=== PATIENT | female | born 1945 | race Caucasian/White ===

== ENCOUNTER 2017-09-02 09:24 | Outpatient (CLI) | payer MEDICARE, OTHER ==
[2015-12-19 09:16] VITALS: BP 189/96
== END 2017-09-02 09:25 ==
LOC: RAD 09:24
PROVIDERS: ATTEND Nurse Practitioner Family
DX: Z78.0 Asymptomatic menopausal state (principal); Z12.31 Encounter for screening mammogram for malignant neoplasm of breast
CPT/HCPCS: 77080

== ENCOUNTER 2017-12-27 13:51 | Outpatient (CLI) | payer MEDICARE, OTHER ==
[2015-12-19 09:16] VITALS: BP 189/96
[2017-12-27 14:07] LABS: BASOPHILS % 0.2 (0.0-1.5); EOSINOPHILS % 2.8 % (0.0-6.8); MEAN CORPUSCULAR HEMOGLOBIN 27.2 pg (28.0-34.0); MEAN CORPUSCULAR VOLUME 87.4 fl (80.0-100.0); MONOCYTES % 2.4 % (0.0-11.0); NEUTROPHILS # 5.2 # k/uL (1.4-7.7)
[2017-12-27 14:34] LABS: eGFR (African) > 60; eGFR (Non-African) > 60
--- NOTE | 2017-12-27 19:47 | Diagnostic Imaging Report ---
[facility] [address] [facility] [address] [id number] Report Submission Date: December 27, 2017 2:59:05 PM CDT Patient Study Name: MICHAEL DAWN Date: December 27, 2017 2:05:21 PM CDT Modality Type: DX Gender: F Description: SPINE : 43 Institution: [facility] Physician: Nicolasa Lee Examination: Plain film lumbar spine History: L-SPINE, LOW BACK PAIN FOR SEVERAL WEEKS, STARTED ON THE LEFT SIDE AND HAS MOVED TO THE RIGHT SIDE. PT STATES NO RECENT INJURY (Hx) Findings: 5 views of the lumbar spine demonstrates diffuse osteopenia. No anterior compression deformity. L4/L5 listhesis. L5/S1 disc space narrowing. Oblique views demonstrate facet degenerative changes. Atherosclerotic disease involving the abdominal aorta and iliac vessels. Impression: Osteopenia, listhesis, and degenerative changes. No compression deformity. Electronically signed on December 27, 2017 2:59:05 PM CDT by: Josiah SERRATO
== END 2017-12-27 13:52 ==
LOC: LAB 13:51
PROVIDERS: ATTEND Internal Medicine Rheumatology
DX: M54.5 Low back pain (principal); M05.70 Rheumatoid arthritis with rheumatoid factor of unspecified site without organ or systems involvement; Z79.899 Other long term (current) drug therapy
CPT/HCPCS: 36415; 72110; 80053; 85025; 85651; 86140

== ENCOUNTER 2018-07-13 11:33 | Emergency (ER) | payer MEDICARE, OTHER ==
[2018-07-13 12:01] VITALS: BP 157/93
[2018-07-13] MEDS ORDERED: methylPREDNISolone ACETATE 80 MG/ML VIAL IM ONE (12:10)
--- NOTE | 2018-07-13 12:13 | ED Physician Documentation ---
Upper Extremity Injury - HISTORIAN Historian: patient, child - HPI Stated Complaint: right hand/wrist pain Chief Complaint: Upper Extremity Problem Additional Information: exab RA rt hand wrist fingers home remedys ibu tramadol etc insufficient-prev pred inj helps Onset: days ago Severity: moderate, severe Duration: persistent since, intermittent pain Context: other (just occaxikonal recurrent--last inj more than 1 yr Ago) Modifying Factors: pain on movement - ROS CONST: no problems CVS/RESP: none NEURO: none GI/: denies: problems urinating, nausea, vomiting - PAST HX Past History: other (RA) Allergies/Adverse Reactions: Allergies Allergy/AdvReac Type Severity Reaction Status Date / Time Tetanus Vaccines and Toxoid Allergy Intermediate Hives Verified 07/13/18 12:04 [Tetanus Vaccines & Toxoid] etanercept [From Enbrel] Allergy Verified 07/13/18 12:04 Home Medications: Ambulatory Orders Medication Instructions Recorded Ibuprofen [Advil] 800 mg PO DAILY PRN 04/20/15 - SOCIAL HX Smoking History: less than 1 pack/day Alcohol Use: none Drug Use: none - FAMILY HX Family History: no significant history - VITAL SIGNS Vital Signs: Vital Signs Temp Pulse Resp BP Pulse Ox 98.0 F 86 16 157/93 97 07/13/18 11:53 07/13/18 11:53 07/13/18 11:53 07/13/18 11:53 07/13/18 11:53 - REVIEWED ASSESSMENTS Nursing Assessment Reviewed: Yes Vitals Reviewed: Yes ED Results Lab/Radiology - Orders Orders: ED Orders Category Date Time Status methylPREDNISolone ACETATE [Depo-Medrol] Med 07/13/18 12:10 Once 80 mg IM NOW ONE Upper Extremity Injury Physic - Physical Exam General Appearance: moderate distress Hand: bone tenderness, stiffness. No: normal ROM Wrist: No: normal inspection Elbow/Forearm: normal inspection Shoulder: normal inspection Neuro/Vascular/Tendon: no vascular compromise Skin: warm,dry. No: diaphoretic, cool Neck/Back: nml inspection Resp/CVS: chest non-tender, breath sounds nml, heart sounds nml, no resp. distress, lungs clear, reg. rate & rhythm Abdomen: non-tender Discharge Clincal Impression: rheumatoid arthritis flare rt hand wsris Referrals: Fauzia Ozuna, PRN [Primary Care Provider] - 2 Days Comments: inj depomedrol--has pred tabs rx at home can refill Disposition: 01 HOME, SELF-CARE Decision to Admit: NO Decision Time: 12:17
== END 2018-07-13 12:21 | disposition home or self-care (01) ==
LOC: ED 11:33
DX: M06.031 Rheumatoid arthritis without rheumatoid factor, right wrist (principal); M06.041 Rheumatoid arthritis without rheumatoid factor, right hand; F17.200 Nicotine dependence, unspecified, uncomplicated
CPT/HCPCS: 96372; 99282; J1040